=== PATIENT | female | born 1995 | race Caucasian/White ===

== ENCOUNTER 2022-04-08 06:43 | Emergency (ER) | payer MEDICAID ==
[~2022-04-08] VITALS: Ht 165.1 cm; Wt 77.0 kg
[2022-04-08] MEDS ORDERED: ACETAMINOPHEN 325MG TABLET PO ONE (09:00)
[2022-04-08] MEDS ORDERED: TOPUD PO (09:27)
[2022-04-08] MEDS ORDERED: AMOX-424 PO (09:27)
[2022-04-08 09:30] VITALS: BP 121/77
== END 2022-04-08 09:45 | disposition home or self-care (01) ==
LOC: ER 06:54
DX: J02.0 Streptococcal pharyngitis (principal); Z20.822 Contact with and (suspected) exposure to COVID-19; R05.9 Cough, unspecified
CPT/HCPCS: 87426; 87430; 99283; C9803